=== PATIENT | female | born 1955 | race Caucasian/White ===

== ENCOUNTER 2020-01-13 15:02 | Emergency (ER) | payer BC, OTHER ==
[2020-01-13] MEDS ORDERED: methylPREDNISolone SODIUM SUC 125 MG/2 ML VIAL IV ONE (15:09)
[2020-01-13] MEDS ORDERED: EPINEPHrine HCL AMP 1 MG/ML AMP SUBCU ONE (15:09)
[2020-01-13] MEDS ORDERED: FAMOTIDINE IV PREMIX 20 MG in PREMIX BAG 1 BAG IVPB ONE (15:09)
[2020-01-13] MEDS ORDERED: diphenhydrAMINE HCL 50 MG/ML VIAL IV ONE (15:11)
[2020-01-13] MEDS ORDERED: FAMOTIDINE IV PREMIX 50 ML IVPB ONE (15:17)
[2020-01-13] MEDS ORDERED: ONDANSETRON INJ 4 MG/2 ML VIAL IV ONE (15:17)
--- NOTE | 2020-01-13 15:21 | ED.PDOC ---
History of Present Illness - General Chief Complaint: Allergic Reaction Stated Complaint: allergic reaction Time Seen by Provider: 01/13/20 15:08 Source: patient, RN notes reviewed, Vital Signs reviewed Exam Limitations: no limitations - History of Present Illness Initial Comments: This is a 64-year-old female presenting to the emergency department with suspected "allergic reaction". She was seen by her PCP earlier today for "sinus problems", and was given an IM steroids. She was tested for COVID-19 today and was negative, she also had a strep screen that was reportedly positive. She was given a prescription for cefprozil, which she took the first dose around noon today. Around 230 she began to feel tingly, short of breath, dry tongue and mouth, nausea/vomiting/diarrhea. She denies any rash or skin changes. She denies any shortness of breath or oropharyngeal swelling. Allergies/Adverse Reactions: Allergies NO KNOWN ALLERGY Allergy (Verified 01/13/20 15:16) Home Medications: Ambulatory Orders EPINEPHrine AUTO-INJ [EpiPen] 0.3 mg IM ONCE #1 pen 01/13/20 RX: Azithromycin 250 mg PO DAILY #6 tab 01/13/20 cloNAZepam [KlonoPIN] 0.5 mg PO Q8H PRN #5 tab 01/13/20 Review of Systems - Review of Systems Constitutional: Denies: chills, fever EENTM: States: nose congestion. Denies: ear pain, nose pain, throat pain, mouth pain, mouth swelling Cardiology: Denies: chest pain, syncope Gastrointestinal/Abdominal: States: diarrhea, nausea, vomiting. Denies: abdominal pain, constipation Genitourinary: Denies: discharge, dysuria, hematuria Musculoskeletal: Denies: back pain, joint pain, joint swelling, muscle stiffness, neck pain Skin: Denies: change in hair/nails, dryness, rash Endocrine: States: no symptoms reported Hematologic/Lymphatic: States: no symptoms reported Family Medical History - Family History Mother Family History: No Known Physical Exam - Physical Exam General Appearance: Alert, Anxious Eye Exam: bilateral normal Ears, Nose, Throat: hearing grossly normal, normal ENT inspection, normal pharyn x Neck: non-tender, full range of motion, supple, normal inspection, other - No stridor Respiratory: chest non-tender, lungs clear, normal breath sounds, no respiratory distress, no accessory muscle use Cardiovascular/Chest: normal peripheral pulses, regular rate, rhythm, no edema, no gallop, no JVD, tachycardia Peripheral Pulses: radial,right: 2+, radial,left: 2+ Gastrointestinal/Abdominal: non tender, soft, no organomegaly Back Exam: no CVA tenderness Extremity: normal range of motion, non-tender, normal inspection Neurologic: no motor/sensory deficits, alert, normal mood/affect, oriented x 3 Skin Exam: normal color, warm/dry Progress - Progress Progress: 01/13/20 16:00 Rechecked. Patient feeling much better, heart rate down to the 90s, no more tingling, no shortness of breath. Patient feeling much better after IM epi, Benadryl, Solu-Medrol, Pepcid. Will continue to observe for total of 4 hours after epinephrine was given to her observe for rebound anaphylaxis. 01/13/20 18:45 Recheck. Patient feeling back to normal. No respiratory distress, anxiety resolved. No further evidence of rebound anaphylaxis after a 4-hour observation in the emergency department. Patient now states that she was tested for strep and tested positive with her PCP earlier today, had a negative COVID test. Given positive strep test and now allergy to second-generation cephalosporins, will give prescription for Z-Dionicio to complete treatment for strep. Discussed appropriate use of EpiPen with patient and family. Patient given strict instructions to come to the emergency department if she uses the EpiPen so that she can be observed. Recommended follow-up with PCP in 2 to 3 days for recheck MDM: DDX: Anaphylaxis, systemic allergic reaction, anxiety Patient presented with bilateral arm tingling, swelling sensation in mouth and throat onset after taking first dose of cefprozil. She had nausea/vomi ting/diarrhea associated with this. Meets criteria for anaphylaxis based on symptoms. She was given epinephrine subcutaneously, IV steroids and antihistamines. Symptoms completely resolved in the emergency department. Labs are reassuring. Recommended she discontinue cefprozil long-term and listed as an allergy. I also believe she probably has some underlying anxiety that may have contributed to it as well. I will give a small number of clonazepam to be used as needed for anxiety reactions. Recommended she follow-up with her PCP in 2 to 3 days for recheck and to discuss any long-term anxiety medications as indicated. 01/14/20 02:09 Han Cruz DO [facility] #[id number] - Results/Orders Results/Orders: EKG interpreted by me at 1511. Sinus tachycardia, rate of 124, normal axis, normal intervals, nonspecific ST and T wave changes. EXAM DESCRIPTION: Chest,1 View CLINICAL HISTORY: 64 years Female, SOB COMPARISON: Previous study March 30, 2011 TECHNIQUE: AP portable chest. FINDINGS: Heart size is normal with normal pulmonary vascularity. No consolidating infiltrate. No pulmonary mass or worrisome nodule. No pneumothorax or pleural effusion. Bones are unremarkable. IMPRESSION: No acute process is identified in the chest. Electronically signed by: Eder Hdz MD 01/13/2020 3:22 01/13/20 15:09 IV Care:Saline Lock per Protoc QSHIFT 01/13/20 15:15 EKG STAT Laboratory Results - last 24 hr 01/13/20 01/13/20 01/13/20 15:35 15:35 15:35 WBC 12.3 H RBC 4.91 Hgb 14.6 Hct 43.8 MCV 89.3 MCH 29.7 MCHC 33.3 RDW 12.9 Plt Count 307 MPV 8.7 Absolute Neuts (auto) 10.00 H Absolute Lymphs (auto) 2.10 Absolute Monos (auto) 0.10 L Absolute Eos (auto) 0.00 Absolute Basos (auto) 0.10 Neutrophils % 81.6 H Lymphocytes % 17.2 L Monocytes % 0.7 L Eosinophils % 0.1 L Basophils % 0.4 Sodium 138 Potassium 4.2 Chloride 103 Carbon Dioxide 18 L Anion Gap 21.2 H BUN 14 Creatinine 0.99 BUN/Creatinine Ratio 14.1 Random Glucose 147 H Serum Osmolality 278.8 Calcium 10.1 Troponin I < 0.02 Departure - Departure Clinical Impression: Anxiety reaction Anaphylaxis Qualifiers: Encounter type: initial encounter Qualified Code(s): T78.2XXA - Anaphylactic shock, unspecified, initial encounter Disposition: Discharge to Home or Self Care Condition: Good Departure Forms: ED Discharge - Pt. Copy, Patient Portal Self Enrollment Instructions: Anaphylaxis Diet: resume usual diet Activity: increase activity as tolerated Referrals: Lorenzo Marquez III, MD [Primary Care Provider] - 1-5 Days Prescriptions: RX: Azithromycin 250 mg PO DAILY #6 tab cloNAZepam [KlonoPIN] 0.5 mg PO Q8H PRN #5 tab PRN Reason: Anxiety EPINEPHrine AUTO-INJ [EpiPen] 0.3 mg IM ONCE #1 pen Home Medications: Ambulatory Orders EPINEPHrine AUTO-INJ [EpiPen] 0.3 mg IM ONCE #1 pen 01/13/20 RX: Azithromycin 250 mg PO DAILY #6 tab 01/13/20 cloNAZepam [KlonoPIN] 0.5 mg PO Q8H PRN #5 tab 01/13/20 Additional Instructions: Stop cefprozil and listed as an allergy. Do not take again.
[2020-01-13 19:10] VITALS: TEMP 98.2
[2020-01-13 19:11] VITALS: BP 107/73; O2SAT 97
== END 2020-01-13 18:55 | disposition home or self-care (01) ==
LOC: ER 15:02
DX: T78.2XXA Anaphylactic shock, unspecified, initial encounter (principal); F41.9 Anxiety disorder, unspecified; R11.2 Nausea with vomiting, unspecified; J02.0 Streptococcal pharyngitis; R00.0 Tachycardia, unspecified
CPT/HCPCS: 36415; 71045; 80048; 84484; 85025; 93005; J1200; J2405; J2930; J3490

== ENCOUNTER → 2020-02-14 | Outpatient (CLI) | payer BC | LOC: LAB.O 12:10 | PROVIDERS: ATTEND Nurse Practitioner Family | DX: Z00.00 Encounter for general adult medical examination without abnormal findings (principal) ==